=== PATIENT | female | born 1995 | race Caucasian/White ===

== ENCOUNTER 2017-02-16 20:02 | Emergency (ER) | payer OTHER ==
[~2017-02-16] VITALS: Ht 162.6 cm; Wt 60.0 kg
[~2017-02-16 20:02] MED LIST: ACET-1157; IBUP-725
[2017-02-16 20:04] VITALS: Ht 162.6 cm; Wt 60.0 kg
--- NOTE | 2017-02-16 21:31 | RADRPT ---
PROCEDURE: XR Wrist. CLINICAL INDICATION: Left wrist pain TECHNIQUE: AP, lateral and oblique views of the left wrist were performed. COMPARISON: No prior studies are available for comparison. FINDINGS: No evidence of fracture, dislocation, or subluxation is seen. The bones appear well mineralized. The joint spaces are well preserved. No significant soft tissue swelling is present. There is no radiop aque foreign body. IMPRESSION: 1. No acute fracture or dislocation. RPTAT: HFN .Harmeet Whittaker MD, Date Time Electronically viewed and signed by .Harmeet Whittaker MD, on 02/16/2017 21:31 .N/
[2017-02-16] MEDS ORDERED: NAPR-260 PO (21:50)
--- NOTE | 2017-02-16 23:02 | ERD ---
ER Documentation Chief Complaint Date/Time DATE: 02/16/17 TIME: 22:58 Chief Complaint left wrist pain something fell on her wrist HPI 21-year-old female coming in complaining of left wrist pain. Patient had a 33 pound baby fall on her left wrist. Patient is left-hand dominant. Patient has worn a splint after the incident with mild alleviation of pain. She has not taken any medications for pain. Denies numbness or tingling. Pain is worse with flexion extension of the wrist. ROS All systems reviewed and are negative except as per history of present illness. Medications Home Meds Active Scripts Naproxen* (Naprosyn*) 500 Mg Tablet, 500 MG PO BID Y for PAIN AND/OR INFLAMMATION, #30 TAB Prov:SHAHID GONZALEZ PA-C 02/16/17 Reported Medications Acetaminophen With Codeine (Tylenol W-Codeine #3 Tablet) 1 Tab Tablet 07/15/10 Ibuprofen (Motrin) 400 Mg Tablet 07/14/10 Allergies Allergies: Coded Allergies: No Known Drug Allergies (Verified Allergy, Mild, 07/15/10) PMhx/Soc Medical and Surgical Hx: pt denies Medical Hx, pt denies Surgical Hx History of Surgery: No Anesthesia Reaction: No Hx Neurological Disorder: No Hx Respiratory Disorders: No Hx Cardiac Disorders: No Hx Psychiatric Problems: No Hx Miscellaneous Medical Probl: No Hx Alcohol Use: No Hx Substance Use: No Hx Tobacco Use: No Smoking Status: Never smoker Physical Exam Vitals Vital Signs Date Time Temp Pulse Resp B/P Pulse Ox O2 Delivery O2 Flow Rate FiO2 02/16/17 20:04 99.7 91 20 120/59 98 Physical Exam GENERAL: The patient is well-appearing, well-nourished, in no acute distress CHEST: Clear to auscultation bilaterally. There are no rales, wheezes or rhonchi. HEART: Regular rate and rhythm. No murmurs, clicks, rubs or gallops. No S3 or S4. EXTREMITIES: Equal pulses bilaterally. There is no peripheral clubbing, cyanosis or edema. No focal swelling or erythema. Full range of motion. Grossly neurovascularly intact. Mild tenderness to palpation over the left distal radius. NEUROLOGIC: Alert and oriented. Cranial nerves II through XII intact. Motor strength in all 4 extremities with 5 out of 5 strength. Sensation grossly intact. Normal speech and gait. Babinski negative. DTR 2+ throughout. SKIN: There is no apparent rash or petechiae. The skin is warm and dry. Procedures/MDM DIAGNOSTIC IMAGING REPORT Patient: VY GUILLEN : 1995 Age: 21 Sex: F MR #: [id number] DOS: 02/16/172028 Ordering MD: LATRICE GONZALEZ PA-C Location: E Room/Bed: PROCEDURE: XR Wrist. CLINICAL INDICATION: Left wrist pain TECHNIQUE: AP, lateral and oblique views of the left wrist were performed. COMPARISON: No prior studies are available for comparison. FINDINGS: No evidence of fracture, dislocation, or subluxation is seen. The bones appear well mineralized. The joint spaces are well preserved. No significant soft tissue swelling is present. There is no radiopaque foreign body. IMPRESSION: 1. No acute fracture or dislocation. MDM: 21-year-old female coming in complaining of left wrist pain. I have low suspicion for acute fracture dislocation. Patient's x-ray is within normal limits and patient's exam is not concerning. I have low suspicion for tendon or ligament injury. I have low suspicion for vascular injury. Patient's exam is within normal limits. Patient likely sustained bone contusion secondary to incident. Patient will be recommended to take medication for pain and ice injury to help alleviate swelling. Patient is told to follow-up with primary care within 1-2 days for close evaluation. All other questions answered at time of discharge. Departure Diagnosis: Primary Impression: Pain in wrist Condition: Stable Patient Instructions: Wrist Sprain Referrals: [facility] YOU HAVE RECEIVED A MEDICAL SCREENING EXAM AND THE RESULTS INDICATE THAT YOU DO NOT HAVE A CONDITION THAT REQUIRES URGENT TREATMENT IN THE EMERGENCY DEPARTMENT. FURTHER EVALUATION AND TREATMENT OF YOUR CONDITION CAN WAIT UNTIL YOU ARE SEEN IN YOUR DOCTORS OFFICE WITHIN THE NEXT 1-2 DAYS. IT IS YOUR RESPONSIBILITY TO MAKE AN APPOINTMENT FOR FOLOW-UP CARE. IF YOU HAVE A PRIMARY DOCTOR --you should call your primary doctor and schedule an appointment IF YOU DO NOT HAVE A PRIMARY DOCTOR YOU CAN CALL OUR PHYSICIAN REFERRAL HOTLINE AT IF YOU CAN NOT AFFORD TO SEE A PHYSICIAN YOU CAN CHOSE FROM THE FOLLOWING [facility] [address]. [facility] [address] [facility] [facility] [address] [facility] [address] [facility] [address] [facility]. [facility] [address] Additional Instructions: FOLLOW UP WITH YOUR PRIMARY CARE PHYSICIAN TOMORROW.Return to this facility if you are not improving as expected. SHAHID GONZALEZ PA-C Feb 16, 2017 23:02
== END 2017-02-16 22:38 | disposition home or self-care (01) ==
LOC: FTE 20:02
DX: M25.532 Pain in left wrist (principal)

== ENCOUNTER 2017-11-14 11:41 | Emergency (ER) | END 2017-11-14 13:50 | disposition home or self-care (01) ==